=== PATIENT | female | born 1945 | race Caucasian/White ===

== ENCOUNTER 2021-04-27 22:20 | Inpatient (IN) | payer OTHER ==
[~2021-04-27] VITALS: Ht 162.6 cm; Wt 68.0 kg
[2021-04-28] VITALS (21 sets, daily range): BP systolic 118–157; BP diastolic 53–78
--- NOTE | 2021-04-28 01:00 | NUR ---
[address] PT OF DR ALISIA ARCINIEGA FLIGHTED FROM [facility] WITH ANTERIOR STEMI TAKEN TO CRYPTOGRAPHIC MACHINE OPERATOR FOR DRUG ELUDING STENT TO LAD RIGHT GROIN CLOSURE DEVICE INTACT. DENIES CHEST PAIN NOR SOA. VOIDING PER BEDPAN MONITOR SHOWS SINUS RHYTHM. INTEGRELIN INFUSING UNTIL EMPTY AT 11 CC/HR. WILL CONT TO MONITOR
--- NOTE | 2021-04-28 01:00 | NUR ---
PT TESTED POSITIVE FOR COVID 19 BUT ASYMPTOMATIC IN GAINES ENHANSED PRECAUTIONS. WILL CONT TO MONITOR
--- NOTE | 2021-04-28 06:00 | NUR ---
VSS PT AWAKE AND ALERT RIGHT GROIN SITE SOFT. PEDAL PULSES 1+ PROGRESSING TOWARD GOALS. DR CRUMP LEFT ORDERS SHE CAN MOVE TO 3 WEST THIS AM PCR COVID CAME BACK POSITIVE REMAINS IN ISOLATION FOR COVID 19. A VERY DELIGHTFUL LITTLE LADY
[2021-04-28 06:22] LABS: CALCIUM 8.1 mg/dL (8.5-10.1); CREATININE 0.6 mg/dL (0.6-1.0); POTASSIUM 3.9 mmol/L (3.5-5.1)
--- NOTE | 2021-04-28 06:54 | EKG ---
[address] [address] ELECTROCARDIOGRAM REPORT Name: YOU PURCELL Room #: 236- ADM IN M.R.#: [id number] Admission: 04/27/21 Attend Phys: Tulio Leblanc MD, Discharge: Date of : 47 Report #: [id number] [facility] Test Date: 2021-04-28 Test Time: 02:22:09 Pat Name: YOU PURCELL Department: Room: 236 Gender: F General Supervisor: [id number] : 1945 Requested By: Tulio Leblanc Order Number: [id number] MD: Elvis Dean Measurements Intervals [place] Rate: 75 P: 62 ID: 165 QRS: 42 QRSD: 78 T: 41 QT: 372 QTc: 416 Interpretive Statements Sinus rhythm Abnormal T, consider ischemia, anterior leads No previous ECG available for comparison Electronically Signed On 04-28-2021 6:53:59 QUANTITATIVE ASSOCIATE by Elvis Dean [email or web address] <ELECTRONICALLY SIGNED> By: Elvis Dean MD, [facility] 04/28/21 0653 1 022 Elvis Dean MD, FACC /EPI
--- NOTE | 2021-04-28 09:19 | NUR ---
76Y.O F, ADM FOR STEMI A0X4, FOLLOWS ROSE, ON 2LNC BREATHING REGULARLY, SR, INEGRIL COMPLETED. SET UOP TO EAT HH MEAL. BP 143/70 HR 79 BP MEDS ANS ASPERIN GIVEN PER ORDER. PLAN IS TO TRANSFER TO 3W WHEN BED IS AVAILABLE. CCM ROUNDING.
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
--- NOTE | 2021-04-28 11:12 | 2DMMODE ---
[address] [address] 2 D/M-MODE ECHOCARDIOGRAM Name: YOU PURCELL Room #: 236-P ADM IN M.R.#: [id number] Admission: 04/27/21 Attend Phys: Tulio Leblanc MD, Discharge: Date of : 47 Report #: [id number] THIS REPORT FOR: cc: [facility] - Clinic physician unknown [facility] - Clinic physician unknown Handy Carpenter MD [facility] ~ APPROVED REPORT Study performed: 04/28/2021 10:11:36 EXAM: Comprehensive 2D, Doppler, and color-flow Echocardiogram Patient Location: ICU Room #: 236 Status: routine BSA: 1.73 HR: 80 bpm BP: 130/69 mmHg Rhythm: NSR Other Information Study Quality: Good Indications COPD Dyspnea CAD Elevated Troponin Hypertension/HDD STEMI Left Ventricle The left ventricle is normal size. There is normal left ventricular wall thickness. Left ventricular systolic function is moderately decreased. LVEF is 40%. Anterior, septal, and apical wall hypokinesis Mild diastolic dysfunction Right Ventricle The right ventricle is normal size. The right ventricular systolic function is normal. Atria Left atrium is dilated. Right atrium is at the upper limits of normal. [address] [address] 2 D/M-MODE ECHOCARDIOGRAM Name: YOU PURCELL Room #: 236-P ADM IN M.R.#: [id number] Admission: 04/27/21 Attend Phys: Tulio Leblanc, Discharge: Date of : 47 Report #: [id number] Aortic Valve The aortic valve is normal in structure. No aortic regurgitation is present. There is no aortic valvular stenosis. Mitral Valve The mitral valve is normal in structure. Trace to mild mitral regurgitation. No evidence of mitral valve stenosis. Tricuspid Valve The tricuspid valve is normal in structure. There is no tricuspid valve regurgitation noted. Pulmonic Valve The pulmonary valve is normal in structure. There is no pulmonic valvular regurgitation. Great Vessels The aortic root is normal in size. IVC is dilated and collapses >50% with inspiration. Pericardium There is no pericardial effusion. <Conclusion> Abbreviated study Left ventricular systolic function is moderately decreased. LVEF is 40%. Anterior, septal, and apical wall hypokinesis Mild diastolic dysfunction The aortic valve is normal in structure. No aortic regurgitation or stenosis The mitral valve is normal in structure. Trace to mild mitral regurgitation. There is no pericardial effusion. <ELECTRONICALLY SIGNED> By: Handy Carpenter MD, FACC 04/28/211111 11 11 Handy Carpenter MD, FACC /INF
--- NOTE | 2021-04-28 15:50 | NUR ---
76F, STEMI, RIGHT GROIN SOFTW/ NO SIGNS OF BLEEDING OR HEMATOMA, PT MOVE TO WHEELCHAIR W/ 1 PERSON ASSISTANCE, PT SENT W/ 2 LT NC TO 3W. PT SENT W/ NO BELONGINS. PT EASILY WALK OUT OF WHEELCHAIR TO BED ON 3W AND PLACED ON TELE MONITOR.
[2021-04-28] MEDS ORDERED: BAYER CHEWABLE81 MG PO (16:25)
[2021-04-28] MEDS ORDERED: METOPROLOL SUCC25 M1 PO (16:25)
[2021-04-28] MEDS ORDERED: LIPITOR40 MG PO (16:25)
[2021-04-28] MEDS ORDERED: EFFIENT10 MG PO (16:25)
--- NOTE | 2021-04-28 18:14 | NUR ---
PATIENT TRANSFERED TO [address] [place] [address] ICU AT 1530, A/O X4. ON RA. RIGHT GROIN NO BLEEDING. NO HENATOMA NITED. DENIES PAIN. PROGRESSING TOWARDS POC GOALS.
[2021-04-29 01:06] LABS: GLYCOHEMOGLOBIN (HGB A1C) 6.7 % (4.8-5.6)
[2021-04-29 04:13] VITALS: BP 123/66
[2021-04-29 04:15] VITALS: BP 123/66
--- NOTE | 2021-04-29 04:57 | NUR ---
Slept well during the night with O2 at 2L/NC otherwise she is in room air. Shortness of breath with exertion . Denies any chest pain or discommfort. Right groin cath site with dressing clean,dry and intact. Groin is soft with no hematoma. SR with T wave inversion per tele. Cont. on enhanced precaution, afebrile. Progressing towards discharge goals.
[2021-04-29 07:35] VITALS: BP 110/55
--- NOTE | 2021-04-29 08:37 | HC ---
[facility] [place] [address] [place] [address] CONSULTATION Name: YOU PURCELL Room #: 354- ADM IN M.R.#: [id number] Admission: 04/27/21 Attend Phys: Tulio Leblanc MD, Discharge: Date of : 47 Report #: [id number] THIS REPORT FOR: cc: [facility] - Clinic physician unknown [facility] - Clinic physician unknown Armando Aviles MD ~ DATE OF SERVICE: 04/28/2021 INFECTIOUS DISEASE CONSULTATION ATTENDING PHYSICIAN: Dr. Tulio Leblanc. REASON FOR EVALUATION: COVID-19 infection. HISTORY OF PRESENT SUBJECTIVE: Chart reviewed. The patient examined. This is a 76-year-old woman, apparently has some underlying pulmonary issues, has known coronary artery disease with previous stenting, who was admitted to an outside hospital with complaints of acute onset of chest discomfort. This was associated with stressful event as per the evaluation. She did undergo COVID testing and was found to be positive. It is notable she has received vaccination series. She notes a previous history of family members positive for COVID. She has essentially been AFib, symptomatic from that standpoint. Denies any cough, no dyspnea. She does note she utilizes supplemental oxygen 2 liters at night and this is unchanged. She is not aware of any fevers or chills. Appetite has been satisfactory. No nausea, no diarrhea, generalized myalgias, or arthralgias. Evaluation confirmed acute myocardial infarction with marked elevation of troponin and ST elevation seen on anterior leads. At this point, she is not experiencing any symptoms. ALLERGIES: None. CURRENT MEDICATIONS: Include atorvastatin, losartan, metoprolol, prasugrel, and aspirin. PAST MEDICAL HISTORY: As described above, has known coronary artery disease, history of hypertension, hyperlipidemia, some underlying COPD, longstanding tobacco use, has required supplemental oxygen at night, previous hysterectomy, cholecystectomy. SOCIAL HISTORY: As noted above, smokes a pack a day. No ethanol, no illicit drug use. FAMILY HISTORY: Noncontributory. REVIEW OF SYSTEMS: Otherwise, unremarkable. [address] [address] CONSULTATION Name: YOU PURCELL Room #: 354-[facility] IN M.R.#: [id number] Admission: 04/27/21 Attend Phys: Tulio Leblanc MD, Discharge: Date of : 47 Report #: [id number] PHYSICAL EXAMINATION: GENERAL: She is alert, cooperative, mild distress. She is lucid, appears reasonably well nourished. VITAL SIGNS: Temperature 98.1, pulse 70, respirations 16-20 range, blood pressure 143/70. SKIN: Warm, dry, no rashes. HEENT: Normocephalic. Extraocular muscles intact. NECK: Supple. Nasal cannula in place, 2 liters. LUNGS: Diminished breath sounds. Few scattered crackles at the bases. HEART: Regular. I do not appreciate a murmur. ABDOMEN: Soft, nontender, nondistended. EXTREMITIES: No cyanosis. GENITOURINARY RECTAL: Deferred. LABORATORY DATA: Troponin elevated at ____. Electrolytes: Sodium 141, potassium 3.9, chloride 108, bicarbonate 23, anion gap of 10, BUN and creatinine 16 and 0.6. Estimated GFR of 93. Coronavirus PCR testing was positive. ASSESSMENT AND PLAN: COVID-19 infection without evidence of primary pneumonitis or respiratory failure above her baseline. We will repeat chest x-ray. Follow her clinical course. At this point, she is not exhibiting signs or symptoms that would suggest ongoing issues of pulmonary parenchymal inflammation. Note, she has a previous history of steroids and she did not tolerate well. We will hold antimicrobials at this point or any other adjunctive therapy to see how she does clinically. Support with oxygen therapy in the event that this clinical deterioration would certainly broaden her regimen directed to the coronavirus as well as empiric therapy. <ELECTRONICALLY SIGNED> By: Armando Aviles MD 04/29/21 0837 0900 1019 Armando Aviles MD /nt
[2021-04-29 11:54] VITALS: BP 110/57
[2021-04-29 12:20] VITALS: BP 110/57
--- NOTE | 2021-04-29 12:24 | NUR ---
INITIAL ASSESSMENT/DISCHARGE NOTE: SW reviewed chart and spoke with nursing. Pt was admitted from home due to STEMI. Pt was in the ICU and transferred to yesterday. Pt is medically stable for discharge home today. Pt placed in Enhanced Isolation due to COVID. Pt's family have all had COVID. Pt is asymptomatic. SW spoke with pt via phone. Introduced role of SW. Pt is alert/orientated x 4. Pt states she lives at home with family. Prior to admission, pt was independent with ADLs. No use of DME. Pt has home O2 in place through [facility]. Pt states she has transportation home. No SW needs identified at this time for discharge. SW is available to assist should needs arise.
--- NOTE | 2021-04-29 13:07 | NUR ---
ORDER FOR DISCHARGE IN. WENT THROUGH NEW MEDICATIONS WITH PT, PAPERRWORK GIVEN WELL. IV AND TELE D/C. PT AWARE OF APPOINTMENT WITH DIRECT MAIL CLERK IN MAY. ALL BELONGINGS WITH PT. PT TAKEN VIA WHEELCHAIR, DTR HERE FOR PT.
--- NOTE | 2021-04-29 17:32 | CATHLAB ---
[facility] [place] [address] [place] [address] INVASIVE PROCEDURE REPORT Name: YOU PURCELL Room #: 354-P [facility] IN M.R.#: [id number] Admission: 04/27/21 Attend Phys: Tulio Leblanc MD, Discharge: 04/29/21 Date of : 47 Report #: [id number] THIS REPORT FOR: cc: [facility] - Clinic physician unknown [facility] - Clinic physician unknown Tulio Leblanc MD [facility] ~ APPROVED REPORT Study performed: 04/27/2021 22:34:40 Patient Details Patient Status: ED Room #: The patient is a 76 year-old female Event Personnel Tulio Leblanc Almond Grinder, Medina Arredondo RTR Monitor, Meg Anguiano RN RN, Usama Burgess RTR Scrub Procedures Performed Art Access - R femoral artery* Left Heart Cath w/or w/o Coronaries [id number] [facility] Aortogram Abdominal Peripheral Angio 798035 EDDIE Revasc AMI Total/Sub Single LAD C9606 AMIREVSING 93746 Initial Mod Sed Same Phys/QHP Gr5y 791769 67545 24554 Mod Sed Same Phys/QHP Ea 335044 Hemostasis w/ Mynx Procedure Narrative The Right Groin^ was infiltrated with 1% Lidocaine subcutaneous anesthesia. A PINNACLE 6FR Sheath #[id number] sheath was inserted into the RFA^. Coronary angiography was performed using coronary diagnostic catheters. The right coronary system was accessed and visualized with a JR4 catheter. The left coronary system was accessed and visualized with a JL4 catheter. The left ventricle was accessed and visualized with a PIGTAIl catheter. Left ventriculogram was performed in 30 degree projection. An aortogram of the abdominal aorta was performed. Pre-demployment femoral angiogram was performed . Closure device was deployed with a Fr MYNXGRIP 6/7F #[id number]. The patient tolerated the procedure well and there were no complications associated with the procedure. There was no hematoma. Intraoperative Conscious Sedation Sedation start time: 23:03 Case end Time: 23:49 Fentanyl 25 mcg Versed 0.[address] [address] INVASIVE PROCEDURE REPORT Name: YOU PURCELL Room #: 354-P [facility]#: [id number] Admission: 04/27/21 Attend Phys: Tulio Leblanc, Discharge: 04/29/21 Date of : 47 Report #: [id number] Fluoro Time: 4.39 minutes Dose: DAP 4065.80 cGycm2 501 mGy Contrast Type and Amount: Visipaque 125 ml Hemodynamics The aortic pressure is 131/62 mmHg with a mean of 83 mmHg. The left ventricular pressure is 131/7 mmHg with a mean of mmHg. The left ventricular end diastolic pressure is 22 mmHg. PCI Technique Lesion Percutaneous coronary intervention was performed on the proximal left anterior descending artery segment. A LAUNCHER 6FR EBU 3.5 #[id number] Guide Catheter was used to engage the ostium. A Luge Wire .014 x 182CM #[id number] Interventional Guidewire was used to cross the lesion. BALLOON DILATION A Balloon catheter Sprinter OTW 2.5 x 12 #[id number] was inserted and inflated up to 16.00atm for 21seconds. STENT DEPLOYMENT A drug-eluting stent RESOLUTE SARA OTW 3.0 X 22 #[id number] was inserted and inflated up to 16.00atm for 25seconds. Conclusion #1 Successful PTCA stent of the proximal LAD subtotal lesion acute infarct vessel placement with 3 oh by 22 resolute drug-eluting stent. JOHANA grade III flow moderate calcification. Moderate disease of the ostial diagonal which was jailed by the stent. #2 left main mildly calcified mildly diseased giving rise to LAD and circumflex. The ostium is 30% narrowed. #3 the circumflex OM is nondominant but moderate distribution there is a proximal circumflex stent previously placed filling a large OM and then the circumflex occludes in the mid vessel. Collateral filling from the left system to the PDA. #4 a previously occluded dominant right it appears with the PDA filled via the left system. #5 normal left jugular size with anterior apical hypokinesis inferior apical hypokinesis EF 45% range. #6 abdominal aortogram shows moderate aortic ectasia small infrarenal aortic aneurysm. Will evaluate this noninvasively. Post hospitalization. Recommendations and plan: Continue aggressive risk factor modification. Dual antiplatelet therapy initiated. Laura malloy [address] [address] INVASIVE PROCEDURE REPORT Name: YOU PURCELL Room #: 354-P [facility] IN Starla.R.#: [id number] Admission: 04/27/21 Attend Phys: Tulio Leblanc, Discharge: 04/29/21 Date of : 47 Report #: [id number] maintained transfer to CCU/ICU due to positive Covid diagnosis hemodynamically stable. <ELECTRONICALLY SIGNED> By: Tulio Leblanc MD, FACC 04/29/21 173 31 31 Tulio Leblanc MD, FACC /INF
== END 2021-04-29 13:12 | disposition home or self-care (01) | DRG 246 ==
LOC: 2N 22:20 → ICU 23:52 → 3W 04-28 15:34
PROVIDERS: Nurse Practitioner Adult Health; ADMIT Internal Medicine Cardiovascular Disease; ATTEND Internal Medicine Cardiovascular Disease
PROC: 027034Z Dilation of Coronary Artery, One Artery with Drug-eluting Intraluminal Device, Percutaneous Approach (ICD-10-PCS; principal; 2021-04-27)
PROC: B215YZZ Fluoroscopy of Left Heart using Other Contrast (ICD-10-PCS; principal; 2021-04-27)
PROC: B211YZZ Fluoroscopy of Multiple Coronary Arteries using Other Contrast (ICD-10-PCS; principal; 2021-04-27)
PROC: 4A023N7 Measurement of Cardiac Sampling and Pressure, Left Heart, Percutaneous Approach (ICD-10-PCS; principal; 2021-04-27)
PROC: B41FYZZ Fluoroscopy of Right Lower Extremity Arteries using Other Contrast (ICD-10-PCS; principal; 2021-04-27)
PROC: B410YZZ Fluoroscopy of Abdominal Aorta using Other Contrast (ICD-10-PCS; principal; 2021-04-27)
DX: I21.09 ST elevation (STEMI) myocardial infarction involving other coronary artery of anterior wall (principal); U07.1 COVID-19; I42.9 Cardiomyopathy, unspecified; I25.10 Atherosclerotic heart disease of native coronary artery without angina pectoris; I10 Essential (primary) hypertension; E78.00 Pure hypercholesterolemia, unspecified; F17.210 Nicotine dependence, cigarettes, uncomplicated; M19.90 Unspecified osteoarthritis, unspecified site; J44.9 Chronic obstructive pulmonary disease, unspecified; I77.819 Aortic ectasia, unspecified site; I72.2 Aneurysm of renal artery; Z20.822 Contact with and (suspected) exposure to COVID-19; Z95.5 Presence of coronary angioplasty implant and graft; Z23 Encounter for immunization; Z90.49 Acquired absence of other specified parts of digestive tract; Z90.710 Acquired absence of both cervix and uterus; Z82.49 Family history of ischemic heart disease and other diseases of the circulatory system
CPT/HCPCS: 10203; 10879

== ENCOUNTER → 2021-06-02 | Outpatient (CLI) | payer OTHER ==
[~2021-06-02] MED LIST: BAYER CHEWABLE81 MG PO; COZAAR 25 MG TA25 M1 PO; EFFIENT10 MG PO; FISH OIL 1,001000 M3 PO; LEVO-T75 MCG PO; LIPITOR40 MG PO; METFORMIN HCL500 M3 PO; METOPROLOL SUCC25 M1 PO; PROBIOTIC1 EAC7 PO; VITAMIN B-121000 MC2 PO; VITAMIN B-6100 MG PO; VITAMIN E400 UNI2 PO; ZINC50 MG PO
== END ==
LOC: SJCVCIMAG 07:55
PROVIDERS: ATTEND Internal Medicine Cardiovascular Disease
DX: R94.31 Abnormal electrocardiogram [ECG] [EKG] (principal); I49.3 Ventricular premature depolarization; I48.91 Unspecified atrial fibrillation; I71.4 Abdominal aortic aneurysm, without rupture; I70.8 Atherosclerosis of other arteries; I25.10 Atherosclerotic heart disease of native coronary artery without angina pectoris; I10 Essential (primary) hypertension; E78.00 Pure hypercholesterolemia, unspecified; I21.29 ST elevation (STEMI) myocardial infarction involving other sites; J44.9 Chronic obstructive pulmonary disease, unspecified; I42.9 Cardiomyopathy, unspecified; F17.210 Nicotine dependence, cigarettes, uncomplicated; Z79.82 Long term (current) use of aspirin; Z79.84 Long term (current) use of oral hypoglycemic drugs; Z79.899 Other long term (current) drug therapy; Z86.16 Personal history of COVID-19; Z95.5 Presence of coronary angioplasty implant and graft; Z95.818 Presence of other cardiac implants and grafts

== ENCOUNTER → 2021-06-23 | Outpatient (CLI) | payer OTHER, MEDICARE ==
[~2021-06-23] VITALS: Ht 154.9 cm; Wt 63.5 kg
[2021-06-23] VITALS (8 sets, daily range): BP systolic 111–146; BP diastolic 60–89
[2021-06-23 12:33] LABS: HEMATOCRIT 41.6 % (37.0-47.0); HEMOGLOBIN 14.1 gm/dL (12.0-15.0); MCH 33.1 pg (26.0-34.0); MCV 97.5 fL (80.0-100.0); RBC 4.27 mil/uL (4.20-5.00); RDW 14.5 % (10.5-14.5); WBC 7.4 thou/uL (4.0-11.0)
[2021-06-23 12:42] LABS: CALCIUM 8.8 mg/dL (8.5-10.1); CREATININE 0.7 mg/dL (0.6-1.0); POTASSIUM 4.1 mmol/L (3.5-5.1)
== END | disposition home or self-care (01) ==
LOC: CATH 07:23
PROVIDERS: ATTEND Nuclear Medicine Nuclear Cardiology
DX: I70.212 Atherosclerosis of native arteries of extremities with intermittent claudication, left leg (principal); M79.605 Pain in left leg; I10 Essential (primary) hypertension; E11.9 Type 2 diabetes mellitus without complications; I25.10 Atherosclerotic heart disease of native coronary artery without angina pectoris; I42.9 Cardiomyopathy, unspecified; E78.00 Pure hypercholesterolemia, unspecified; J44.9 Chronic obstructive pulmonary disease, unspecified; K21.9 Gastro-esophageal reflux disease without esophagitis; F17.210 Nicotine dependence, cigarettes, uncomplicated; Z98.890 Other specified postprocedural states; Z79.899 Other long term (current) drug therapy; Z82.49 Family history of ischemic heart disease and other diseases of the circulatory system; Z20.822 Contact with and (suspected) exposure to COVID-19